=== PATIENT | male | born 1980 | race Caucasian/White ===

== ENCOUNTER 2025-01-02 00:17 | Emergency (ER) | payer MEDICAID ==
[~2025-01-02] VITALS: Ht 175.3 cm; Wt 73.0 kg
[2025-01-02 00:18] VITALS: TEMP 36.5; O2SAT 98
[2025-01-02] MEDS ORDERED: NALO4SPR BOTHNSTRLS (01:32)
[2025-01-02 02:15] VITALS: BP 110/71; PULSE 83; RESP 16; O2SAT 97
== END 2025-01-02 02:45 | disposition home or self-care (01) ==
LOC: ER 00:25
DX: T40.1X1A Poisoning by heroin, accidental (unintentional), initial encounter (principal); X58.XXXA Exposure to other specified factors, initial encounter
CPT/HCPCS: 99283

== ENCOUNTER 2025-06-02 01:13 | Emergency (ER) | payer MEDICAID ==
[~2025-06-02] VITALS: Ht 165.1 cm; Wt 71.0 kg
[~2025-06-02 01:13] MED LIST: NALO4SPR BOTHNSTRLS
[2025-06-02 01:43] VITALS: TEMP 37.3; O2SAT 100
[2025-06-02] MEDS: IBUPROFEN 600MG TABLET PO ONE (02:07)
[2025-06-02] MEDS ORDERED: IBUP-2029 MT (02:21)
[2025-06-02 02:54] VITALS: BP 122/69; PULSE 100; RESP 15; O2SAT 100
== END 2025-06-02 02:58 | disposition home or self-care (01) ==
LOC: ER 01:13
DX: R07.89 Other chest pain (principal); Z79.899 Other long term (current) drug therapy
CPT/HCPCS: 71045; 93005; 99283